=== PATIENT | female | born 1940 | race Caucasian/White ===

== ENCOUNTER → 2017-09-09 | Outpatient (CLI) | payer OTHER, BC ==
[~2017-09-09] VITALS: Ht 172.7 cm; Wt 106.1 kg
[~2017-09-09] MED LIST: ACETAMINOPHEN500 M3 PO; ACIDOPHILUS LA1 EACH PO; ACIDOPHILUS1 EAC1 PO; ACIDOPHILUS1 EAC3 PO; ADVANCED CALCI1 EAC1 PO; ALDACTONE25 MG PO; AMARYL4 MG PO; AMITRIPTYLINE H10 M1 PO; APAP500 PO; ASPIRIN EC325 M1 PO; AUGMENTIN 875875 MG PO; BACTRIM DS TAB1 EAC1 PO; BACTRIM DS TAB1 EACH PO; BACTROBAN NASAL1 GM NASAL; BIOTIN1 GM PO; BIOTIN1 MG PO; CARVEDILOL12.5 MG PO; CARVEDILOL25 MG PO; CEFTIN500 MG PO; CEFTRIAXON2 GM/50 ML IV; CHROMIUM PICO400 MCG PO; CHROMIUM200 MCG PO; CIPRO250 M1 PO; CO Q-10100 MG PO; COLACE100 MG PO; CORDARONE200 MG PO; CYMBALTA30 MG PO; DEMADEX20 MG PO; DEX4 GLUCOSE1 EACH PO; DEXTROSE 5025 GM/SYR IV; ENOXAPARIN30 MG/0.1 SUBQ; GLUCOSAMIN-CHO1 EACH PO; GLUCOSAMINE-CH1 EA33 PO; GLUCOSAMINE1000 MG PO; HORIZANT600 MG PO; IRON325 PO; KEFLEX250 MG PO; KLOR-CON 10 ER10 MEQ PO; LANOXIN 0.250.25 M1 PO; LANTUSSOLASTAR SUBQ; LASIX 40 MG TAB40 M1 PO; LASIX 40 MG TAB40 M2 PO; LAXATIVE PEG 3317 GM PO; LEVOTHYROXINE0.05 MG PO; LIDODERM 5%1 PATC1 TOP; LIPITOR10 MG PO; LISINOPRIL-HCT1 EAC2 PO; LISINOPRIL10 MG PO; LISINOPRIL20 MG PO; LISINOPRIL5 MG PO; METFORMIN HCL500 MG PO; MUCINEX TA600 MG/TA2 PO; MULTIVITAMINS1 EAC7 PO; NEPHRO-VITE RX1 TA1 PO; NOVOLOG100 UNIT/1 SUBQ; PACERONE 200 M200 M1 PO; PEG3350510 GM PO; PEPCID20 MG PO; POTASSIUM20 PO; PREDNISONE 10 M10 MG PO; PREDNISONE 20 M20 M1 PO; PRINIVIL20 MG PO; PROTONIX40 M1 IV; SODIUM CHLORIDE10 ML IV; TEARS NATURALE1 EACH OPHTHALMIC; TOPROL XL25 MG PO; TYLENOL325 MG PO; VITAMIN D-32000 UNIT PO; VITAMIN E200 UNI3 PO; VITAMIN E200 UNI4 PO; VITAMINC500 PO; VITCB500GO PO; [UNRECOGNIZED DRUG - OTHER] PO; [UNRECOGNIZED DRUG - OTHER] RECTAL
--- NOTE | ~2017-09-09 | P ---
[facility] [place] [address] PROCEDURE REPORT Name: TG BARRY Room #: REG [facility].#: [id number] Admission: 09/09/17 Attend Phys: Michael Akbar MD Discharge: Date of : 44 Report #: [id number] THIS REPORT FOR: //name// CC: Perico Akbar DATE OF SERVICE: 09/09/2017 PROCEDURE: ICD generator exchange. PREOPERATIVE DIAGNOSIS: Nonischemic cardiomyopathy with a biventricular implantable cardioverter defibrillator at the elective replacement interval. POSTOPERATIVE DIAGNOSIS: Nonischemic cardiomyopathy with a biventricular implantable cardioverter defibrillator at the elective replacement interval. HISTORY: The patient is a 77-year-old with history of a nonischemic cardiomyopathy, status post biventricular ICD implantation back in 09/2012. She has a complex past medical history in 2014. She had a prolonged hospitalization with endocarditis, renal failure, who eventually improved with a prolonged hospitalization and recovery of about 1 year. She has been off antibiotics for a long time. She is here for ICD generator exchange. ANESTHESIA: The patient underwent MAC anesthesia with no anesthesia related complications. DESCRIPTION OF PROCEDURE: The patient underwent informed consent. We discussed the details of the procedure including the risks, which include but not limited to bleeding, infection, vascular damage, cardiac perforation and pneumothorax. She understood these risks and was willing to proceed. As such, the patient was brought to the EP Laboratory in a fasting and unsedated state and received IV vancomycin for antibiotic prophylaxis. Next, I injected lidocaine to the prior incision site. Then, incision was made and the chronic pocket was opened. I removed some of the anterior capsule. I then made some additional room for the different shape of the new device. Next, the device was disconnected from the old generator and connected to the new generator. Tug tests were performed and the leads were found to be functioning normally with stable pacing thresholds and impedances. The shock impedances were within normal limits as well. There was no noise noted on any of the leads. Next, I placed the new device in the pocket with an antibiotic TYRX pouch, which was manufactured by [employer]. The pocket was irrigated with vancomycin and then the pocket was closed in 3 layers using 2-0 for the deep layer, 3-0 for the mid layer and 4-0 for the subcuticular layer. Surgical glue was placed to the skin layer. The patient awoke neurologically and hemodynamically intact with no [address] [id number] PROCEDURE REPORT Name: TG BARRY Room #: REG KRISTI Delmi#: [id number] Admission: 09/09/17 Attend Phys: Michael Akbar MD Discharge: Date of : 44 Report #: [id number] complications and no significant bleeding. The explanted device was a Medtronic model #Y545JLC, serial #[id number], implanted on 09/20/2012. The newly implanted generator was a [employer] model #[id number], serial #[id number]. The atrial lead was a Med[employer]onic model #5076, serial #[id number]. The lead demonstrated a P-wave of 1.3 millivolts, pacing impedance of 392 ohms and a pacing threshold of 1.125 volts at 0.5 milliseconds. The RV lead was a Med[employer]onic model #6947, serial #[id number]. This lead demonstrated an R-wave of 28 millivolts, a pacing impedance of 399 ohms and a pacing threshold of 1.25 volts at 0.5 milliseconds. The LV lead was a Med[employer]onic model #4196, serial #[id number]. This lead demonstrated a pacing impedance of 380 ohms and a pacing threshold of 1.5 volts at 0.5 milliseconds. The device was programmed to DDDR 60-120 mode. The VT zone was set at 160-200 with 3 rounds of bursts, followed by 3 rounds of ramp, followed by max output shocks and the VF zone was set at 200 with ATP while charging, followed by max output shocks. CONCLUSIONS: 1. Successful ICD generator exchange. 2. Satisfactory atrial, right ventricular and left ventricular pacing and sensing thresholds. 3. Successful implantation of a Medtronic antibiotic pouch. By: [id number] Michael Akbar MD /nt
[2017-09-09 07:13] LABS: ABSOLUTE NEUTROPHILS 2.8 thou/uL (1.4-8.2); BASOPHILS 1.4 % (0.0-2.0); EOSINOPHILS 5.4 % (0.0-3.0); HEMATOCRIT 37.5 % (37.0-47.0); HEMOGLOBIN 12.4 gm/dL (12.0-15.0); LYMPHOCYTES 38.3 % (24.0-44.0); MCH 33.5 pg (26.0-34.0); MCHC 33.2 g/dL (28.0-37.0); MCV 100.8 fL (80.0-100.0); MONOCYTES 11.9 % (1.0-8.0); PLATELET COUNT 133 thou/uL (150-400); RBC 3.72 mil/uL (4.20-5.00); RDW 13.9 % (10.5-14.5); WBC 6.6 thou/uL (4.0-11.0)
[2017-09-09 07:14] LABS: MANUAL DIFF NO
[2017-09-09 07:27] LABS: PROTIME 10.7 Seconds (9.3-11.4)
[2017-09-09 07:32] LABS: CALCIUM 9.3 mg/dL (8.5-10.1); CREATININE 1.9 mg/dL (0.6-1.0)
[2017-09-09 07:38] LABS: ALBUMIN 3.3 g/dL (3.4-5.0); TOTAL BILIRUBIN 0.4 mg/dL (<0.1-1.0); TOTAL PROTEIN 7.2 g/dL (6.4-8.2)
[2017-09-09 07:43] VITALS: BP 134/65
== END | disposition home or self-care (01) ==
LOC: CATH 06:34
PROVIDERS: Internal Medicine Cardiovascular Disease
DX: Z45.02 Encounter for adjustment and management of automatic implantable cardiac defibrillator (principal); I42.8 Other cardiomyopathies; I11.0 Hypertensive heart disease with heart failure; I25.10 Atherosclerotic heart disease of native coronary artery without angina pectoris; I50.9 Heart failure, unspecified; E11.9 Type 2 diabetes mellitus without complications; Z95.5 Presence of coronary angioplasty implant and graft; Z90.710 Acquired absence of both cervix and uterus; Z98.890 Other specified postprocedural states; Z91.040 Latex allergy status; Z88.0 Allergy status to penicillin; Z91.041 Radiographic dye allergy status; Z88.8 Allergy status to other drugs, medicaments and biological substances; Z79.899 Other long term (current) drug therapy
CPT/HCPCS: 62110; 62900; 70005

== ENCOUNTER → 2019-12-23 | Outpatient (CLI) | payer OTHER, BC | LOC: SJCVC 12:55 | DX: I49.3 Ventricular premature depolarization (principal); R94.31 Abnormal electrocardiogram [ECG] [EKG]; I42.8 Other cardiomyopathies; I25.10 Atherosclerotic heart disease of native coronary artery without angina pectoris; I47.2 Ventricular tachycardia; I33.0 Acute and subacute infective endocarditis; E78.5 Hyperlipidemia, unspecified; I12.9 Hypertensive chronic kidney disease with stage 1 through stage 4 chronic kidney disease, or unspecified chronic kidney disease; E11.22 Type 2 diabetes mellitus with diabetic chronic kidney disease; N18.3 Chronic kidney disease, stage 3 (moderate); Z95.810 Presence of automatic (implantable) cardiac defibrillator; Z79.82 Long term (current) use of aspirin; Z79.899 Other long term (current) drug therapy ==

== ENCOUNTER → 2020-06-27 | Outpatient (CLI) | payer OTHER, BC | LOC: SJCVC 14:01 | PROVIDERS: ATTEND Internal Medicine | DX: I25.10 Atherosclerotic heart disease of native coronary artery without angina pectoris (principal); R94.31 Abnormal electrocardiogram [ECG] [EKG]; I42.8 Other cardiomyopathies; I47.2 Ventricular tachycardia; E78.5 Hyperlipidemia, unspecified; I33.0 Acute and subacute infective endocarditis; E11.22 Type 2 diabetes mellitus with diabetic chronic kidney disease; I12.9 Hypertensive chronic kidney disease with stage 1 through stage 4 chronic kidney disease, or unspecified chronic kidney disease; N18.2 Chronic kidney disease, stage 2 (mild); Z95.810 Presence of automatic (implantable) cardiac defibrillator; Z79.899 Other long term (current) drug therapy ==

== ENCOUNTER 2020-12-14 11:26 | Emergency (ER) | payer OTHER, BC ==
[~2020-12-14] VITALS: Ht 172.7 cm; Wt 108.9 kg
[2020-12-14 12:30] VITALS: BP 103/49
== END 2020-12-14 12:29 | disposition home or self-care (01) ==
LOC: ER 11:26
DX: L97.919 Non-pressure chronic ulcer of unspecified part of right lower leg with unspecified severity (principal); I11.0 Hypertensive heart disease with heart failure; I50.9 Heart failure, unspecified; E11.9 Type 2 diabetes mellitus without complications; Z95.0 Presence of cardiac pacemaker; Z90.49 Acquired absence of other specified parts of digestive tract; Z90.710 Acquired absence of both cervix and uterus; Z79.899 Other long term (current) drug therapy; Z88.0 Allergy status to penicillin; Z88.8 Allergy status to other drugs, medicaments and biological substances; Z91.010 Allergy to peanuts; Z91.012 Allergy to eggs; Z91.048 Other nonmedicinal substance allergy status; Z91.018 Allergy to other foods; Z91.040 Latex allergy status

== ENCOUNTER → 2020-12-18 | Outpatient (CLI) | payer OTHER, BC | LOC: HYPER 09:42 | PROVIDERS: ATTEND Emergency Medicine | DX: E11.622 Type 2 diabetes mellitus with other skin ulcer (principal); L97.812 Non-pressure chronic ulcer of other part of right lower leg with fat layer exposed; L03.115 Cellulitis of right lower limb; R60.0 Localized edema; E11.22 Type 2 diabetes mellitus with diabetic chronic kidney disease; I12.9 Hypertensive chronic kidney disease with stage 1 through stage 4 chronic kidney disease, or unspecified chronic kidney disease; N18.9 Chronic kidney disease, unspecified; E78.5 Hyperlipidemia, unspecified; I42.9 Cardiomyopathy, unspecified; Z98.49 Cataract extraction status, unspecified eye; Z79.82 Long term (current) use of aspirin; Z79.84 Long term (current) use of oral hypoglycemic drugs; Z90.710 Acquired absence of both cervix and uterus; Z95.0 Presence of cardiac pacemaker ==

== ENCOUNTER → 2020-12-26 | Outpatient (CLI) | payer OTHER, BC | LOC: HYPER 11:21 | PROVIDERS: ATTEND Emergency Medicine | DX: E11.622 Type 2 diabetes mellitus with other skin ulcer (principal); L97.812 Non-pressure chronic ulcer of other part of right lower leg with fat layer exposed; L03.115 Cellulitis of right lower limb; R60.0 Localized edema; E11.22 Type 2 diabetes mellitus with diabetic chronic kidney disease; I12.9 Hypertensive chronic kidney disease with stage 1 through stage 4 chronic kidney disease, or unspecified chronic kidney disease; N18.9 Chronic kidney disease, unspecified; E66.01 Morbid (severe) obesity due to excess calories; E78.5 Hyperlipidemia, unspecified; I42.9 Cardiomyopathy, unspecified; Z79.82 Long term (current) use of aspirin; Z79.84 Long term (current) use of oral hypoglycemic drugs; Z68.36 Body mass index [BMI] 36.0-36.9, adult ==

== ENCOUNTER → 2020-12-31 | Outpatient (CLI) | payer OTHER, BC | LOC: SJCVC 10:57 | PROVIDERS: ATTEND Internal Medicine | DX: R94.31 Abnormal electrocardiogram [ECG] [EKG] (principal); I25.10 Atherosclerotic heart disease of native coronary artery without angina pectoris; I42.8 Other cardiomyopathies; I47.2 Ventricular tachycardia; E78.5 Hyperlipidemia, unspecified; I33.0 Acute and subacute infective endocarditis; E11.22 Type 2 diabetes mellitus with diabetic chronic kidney disease; I12.9 Hypertensive chronic kidney disease with stage 1 through stage 4 chronic kidney disease, or unspecified chronic kidney disease; N18.2 Chronic kidney disease, stage 2 (mild); I44.7 Left bundle-branch block, unspecified; I25.5 Ischemic cardiomyopathy; Z95.810 Presence of automatic (implantable) cardiac defibrillator; Z79.899 Other long term (current) drug therapy; Z88.1 Allergy status to other antibiotic agents; Z88.0 Allergy status to penicillin; Z88.5 Allergy status to narcotic agent; Z88.8 Allergy status to other drugs, medicaments and biological substances; Z91.040 Latex allergy status; Z82.0 Family history of epilepsy and other diseases of the nervous system ==

== ENCOUNTER → 2021-01-02 | Outpatient (CLI) | payer OTHER, BC | LOC: HYPER 13:23 | PROVIDERS: ATTEND Emergency Medicine | DX: E11.622 Type 2 diabetes mellitus with other skin ulcer (principal); L97.812 Non-pressure chronic ulcer of other part of right lower leg with fat layer exposed; L03.115 Cellulitis of right lower limb; R60.0 Localized edema; E11.22 Type 2 diabetes mellitus with diabetic chronic kidney disease; I12.9 Hypertensive chronic kidney disease with stage 1 through stage 4 chronic kidney disease, or unspecified chronic kidney disease; N18.9 Chronic kidney disease, unspecified; E66.01 Morbid (severe) obesity due to excess calories; E78.5 Hyperlipidemia, unspecified; I42.9 Cardiomyopathy, unspecified; Z79.82 Long term (current) use of aspirin; Z79.84 Long term (current) use of oral hypoglycemic drugs; Z68.36 Body mass index [BMI] 36.0-36.9, adult ==